=== PATIENT | female | born 1935 | race Caucasian/White ===

== ENCOUNTER 2016-07-01 14:28 | Outpatient (CLI) | payer MEDICARE ==
[2016-07-01 15:16] LABS: Anion Gap 15 mmol/L (10-20); BUN (Urea Nitrogen) 17 mg/dL (9.8-20.1); Calc. Creatinine Clearance 0 mL/min (70-130); Calcium 9.5 mg/dL (7.8-10.44); Carbon Dioxide 29 mmol/L (23-31); Chloride 97 mmol/L (98-107); Estimated GFR-MDRD 51; Glucose 76 mg/dL (83-110); Potassium 4.8 mmol/L (3.5-5.1); Sodium 136 mmol/L (136-145)
== END 2016-07-01 14:29 | disposition home or self-care (01) ==
LOC: MADLAB 14:28
PROVIDERS: ATTEND Internal Medicine Nephrology
DX: N18.4 Chronic kidney disease, stage 4 (severe) (principal)
CPT/HCPCS: 36415; 80048

== ENCOUNTER 2016-08-12 10:27 | Outpatient (CLI) | payer MEDICARE, OTHER ==
[2016-08-12 10:42] LABS: Hemoglobin 13.2 g/dL (12.0-16.0)
[2016-08-12 11:03] LABS: Anion Gap 16 mmol/L (10-20); BUN (Urea Nitrogen) 19 mg/dL (9.8-20.1); Calc. Creatinine Clearance 0 mL/min (70-130); Calcium 10.2 mg/dL (7.8-10.44); Carbon Dioxide 26 mmol/L (23-31); Chloride 97 mmol/L (98-107); Estimated GFR-MDRD 64; Glucose 89 mg/dL (83-110); Potassium 4.6 mmol/L (3.5-5.1); Sodium 134 mmol/L (136-145)
== END 2016-08-12 10:28 | disposition home or self-care (01) ==
LOC: MADLAB 10:27
PROVIDERS: ATTEND Internal Medicine Nephrology
DX: N18.2 Chronic kidney disease, stage 2 (mild) (principal); D63.1 Anemia in chronic kidney disease
CPT/HCPCS: 36415; 80048; 85014; 85018

== ENCOUNTER 2017-08-21 17:44 | Emergency (ER) | payer MEDICARE, MEDICAID ==
[~2017-08-21 17:44] MED LIST: Sodium Chloride 0.9% 100 ML BAG ONE
[2017-08-21] MEDS ORDERED: Aspirin 325 MG TAB ONE (18:16)
[2017-08-21 18:22] LABS: INR-International Normal Ratio 1.1; PTT 34.3 SEC (22.9-36.1); Prothrombin Time 14.2 SEC (12.0-14.7)
[2017-08-21 18:31] LABS: MDiff Complete? YES; Manual Diff?? YES; Mean Corpuscular HGB CONC 32.8 g/dL (32.0-36.0); Mean Corpuscular Volume 91.7 fL (81.0-99.0); Mean Platelet Volume 6.4 fL (7.4-10.4); Platelet Count 216 thou/uL (130-400); RBC Distribution Width 14.4 % (11.5-14.5); Red Blood Cell (RBC) Count 4.01 mill/uL (4.20-5.40); White Blood Cell (WBC) Count 16.6 thou/uL (4.8-10.8)
[2017-08-21 18:32] LABS: Band 1 % (5-11); Lymphocytes 8 % (21-51); Monocytes 10 % (0-10); Neutrophil 81 % (42-75); PLT Morphology Comment Appears Adequate
[2017-08-21 18:39] LABS: Bilirubin Negative (Negative); Blood, Urine Trace (Negative); Clarity Slightly Cloudy (Clear); Glucose, Urine (Dipstick) Negative (Negative); Leukocyte Moderate (Negative); Nitrite Negative (Negative); Protein, Urine (Dipstick) 100 mg/dL (Neg-Trace); Specific Gravity, Urine 1.025 (1.005-1.030); Urobilinogen 0.2 mg/dL (0.2-1.0)
[2017-08-21 18:43] LABS: CKMB 1.6 ng/mL (0-6.6); Troponin I 0.035 ng/mL (< 0.028)
[2017-08-21 18:51] LABS: ALT (SGPT) 18 U/L (8-55); AST (SGOT) 21 U/L (5-34); Albumin 3.8 g/dL (3.4-4.8); Alkaline Phosphatase 73 U/L (40-150); Anion Gap 18 mmol/L (10-20); BUN (Urea Nitrogen) 43 mg/dL (9.8-20.1); Bilirubin, Total 0.7 mg/dL (0.2-1.2); CK (CPK) 101 U/L (29-168); Calc. Creatinine Clearance 0 mL/min (70-130); Calcium 9.3 mg/dL (7.8-10.44); Carbon Dioxide 22 mmol/L (23-31); Chloride 98 mmol/L (98-107); Estimated GFR-MDRD 25; Globulin 2.9 g/dL (2.4-3.5); Glucose 119 mg/dL (83-110); Potassium 4.7 mmol/L (3.5-5.1); Protein, Total 6.7 g/dL (6.0-8.3); Sodium 133 mmol/L (136-145)
[2017-08-21 18:52] LABS: Bacteria/HPF 3+ HPF (None Seen); RBC/HPF 0-3 HPF (0-3); WBC/HPF 21-50 HPF (0-3)
--- NOTE | 2017-08-21 19:06 | RAD ---
PORTABLE CHEST ONE VIEW: Date: 08-21-17 Time: 5:59 p.m. History: Altered mental status. FINDINGS/IMPRESSION: The heart is enlarged. Left sided pacemaker device remains in place. Opacity is seen in the left lung base. There is mild prominence of the pulmonary vascularity. No pneumothoraces or large effusions ar e seen. POS: [facility]
[2017-08-21] MEDS ORDERED: cefTRIAXone\\ROCEPHIN 2 GM VIAL ONE (20:12)
[2017-08-21] MEDS ORDERED: methylPREDNISolone Sod Succ/PF 125 MG/2 ML VIAL ONE (20:12)
== END 2017-08-21 20:35 | disposition short-term general hospital (02) ==
LOC: MADERS 17:44
DX: J18.9 Pneumonia, unspecified organism (principal); N39.0 Urinary tract infection, site not specified; I50.9 Heart failure, unspecified; F03.90 Unspecified dementia, unspecified severity, without behavioral disturbance, psychotic disturbance, mood disturbance, and anxiety; I11.0 Hypertensive heart disease with heart failure; Z79.899 Other long term (current) drug therapy
CPT/HCPCS: 36415; 51701; 71045; 80053; 81001; 82550; 82553; 83605; 83880; 84484; 85025; 85610; 85730; 87040; 87077; 87086; 87186; 93005; 94760; 96374; 96375; A4353; J0696; J2930; J7050

== ENCOUNTER 2017-09-16 10:54 | Outpatient (CLI) | payer MEDICARE, OTHER ==
[2017-09-16 11:28] LABS: Anion Gap 17 mmol/L (10-20); BUN (Urea Nitrogen) 15 mg/dL (9.8-20.1); Calc. Creatinine Clearance 0 mL/min (70-130); Calcium 10.4 mg/dL (7.8-10.44); Carbon Dioxide 28 mmol/L (23-31); Chloride 100 mmol/L (98-107); Estimated GFR-MDRD 48; Glucose 103 mg/dL (83-110); Potassium 4.6 mmol/L (3.5-5.1); Sodium 140 mmol/L (136-145)
== END 2017-09-16 10:55 | disposition home or self-care (01) ==
LOC: MADLAB 10:54
PROVIDERS: ATTEND Internal Medicine Nephrology
DX: N18.3 Chronic kidney disease, stage 3 (moderate) (principal)
CPT/HCPCS: 36415; 80048

== ENCOUNTER 2017-12-20 18:43 | Emergency (ER) | payer MEDICARE, OTHER ==
[2017-12-20 19:30] LABS: #Basophils 0.1 thou/uL (0.0-0.2); #Eosinphils 0.3 thou/uL (0.0-0.7); #Lymphocytes 1.1 thou/uL (1.20-3.40); #Monocytes 0.6 thou/uL (0.11-0.59); #Neutrophils 4.1 thou/uL (1.40-6.50); %Basophils 1.8 % (0.0-1.0); %Eosinophils 4.6 % (0.0-10.0); %Lymphocytes 17.6 % (21.0-51.0); %Monocytes 9.4 % (0.0-10.0); %Neutrophils 66.6 % (42.0-75.0); Mean Corpuscular HGB CONC 31.6 g/dL (32.0-36.0); Mean Corpuscular Hemoglobin 28.4 pg (27.0-31.0); Mean Corpuscular Volume 89.9 fL (78.0-98.0); Mean Platelet Volume 5.1 fL (7.4-10.4); Platelet Count 290 thou/uL (130-400); Red Blood Cell (RBC) Count 4.57 mill/uL (4.20-5.40); White Blood Cell (WBC) Count 6.2 thou/uL (4.8-10.8)
[2017-12-20 19:46] LABS: Anion Gap 19 mmol/L (10-20); BUN (Urea Nitrogen) 15 mg/dL (9.8-20.1); Calc. Creatinine Clearance 0 mL/min (70-130); Calcium 9.8 mg/dL (7.8-10.44); Carbon Dioxide 23 mmol/L (23-31); Chloride 101 mmol/L (98-107); Estimated GFR-MDRD 43; Glucose 144 mg/dL (83-110); Potassium 3.9 mmol/L (3.5-5.1); Sodium 139 mmol/L (136-145)
[2017-12-20 19:56] LABS: Bilirubin Negative (Negative); Blood, Urine Negative (Negative); Clarity Clear (Clear); Glucose, Urine (Dipstick) Negative (Negative); Leukocyte Negative (Negative); Nitrite Negative (Negative); Protein, Urine (Dipstick) 30 mg/dL (Neg-Trace); Urobilinogen 0.2 mg/dL (0.2-1.0)
[2017-12-20 20:05] LABS: Bacteria/HPF None Seen HPF (None Seen); RBC/HPF 0-3 HPF (0-3); WBC/HPF 0-3 HPF (0-3)
--- NOTE | 2017-12-20 21:32 | CT ---
HEAD CT WITHOUT CONTRAST: 12/20/17 COMPARISON: 10/26/15 HISTORY: Urinary tract infection, electrolyte imbalance, altered mental status. TECHNIQUE: Serial axial CT imaging at 5 mm intervals from vertex through skull base without contrast. FINDINGS: The imaged paranasal sinuses and mastoid air cells are unremarkable aside from mild mucosal thickenin g of the right sphenoid sinus. There is atherosclerotic calcification of bilateral cavernous carotid arteries. There is moderate diffuse cerebral volume loss with associated prominence of the CSF contai gela spaces, stable. Periventricular hypodensity noted suggesting small vessel disease. No intracranial hemorrhage, midlin e shift or mass effect. IMPRESSION: No acute findings. POS: [facility]
[2017-12-20 21:56] LABS: CKMB 1.4 ng/mL (0-6.6); Troponin I 0.031 ng/mL (< 0.028)
== END 2017-12-20 23:20 | disposition short-term general hospital (02) ==
LOC: MADERS 18:43
DX: R41.82 Altered mental status, unspecified (principal); R78.89 Finding of other specified substances, not normally found in blood; I25.10 Atherosclerotic heart disease of native coronary artery without angina pectoris; I10 Essential (primary) hypertension; F03.90 Unspecified dementia, unspecified severity, without behavioral disturbance, psychotic disturbance, mood disturbance, and anxiety; Z87.891 Personal history of nicotine dependence
CPT/HCPCS: 70450; 80048; 81003; 81015; 82553; 84443; 84484; 85025; 93005; A4353

== ENCOUNTER 2018-04-21 15:19 | Outpatient (CLI) | payer MEDICARE, OTHER ==
[2018-04-21 15:32] LABS: Hemoglobin 12.5 g/dL (12.0-16.0)
[2018-04-21 15:46] LABS: Anion Gap 15 mmol/L (10-20); BUN (Urea Nitrogen) 15 mg/dL (9.8-20.1); Calc. Creatinine Clearance 0 mL/min (70-130); Calcium 10.5 mg/dL (7.8-10.44); Carbon Dioxide 27 mmol/L (23-31); Chloride 94 mmol/L (98-107); Estimated GFR-MDRD 50; Glucose 108 mg/dL (83-110); Potassium 4.6 mmol/L (3.5-5.1); Sodium 131 mmol/L (136-145)
== END 2018-04-21 15:20 | disposition home or self-care (01) ==
LOC: MADLAB 15:19
PROVIDERS: ATTEND Internal Medicine Nephrology
DX: N18.3 Chronic kidney disease, stage 3 (moderate) (principal); D63.1 Anemia in chronic kidney disease
CPT/HCPCS: 36415; 80048; 85014; 85018

== ENCOUNTER 2018-10-05 10:36 | Emergency (ER) | payer MEDICARE, BC, OTHER ==
--- NOTE | 2018-10-05 11:43 | RAD ---
RIGHT SHOULDER THREE VIEWS: History: Injury with pain to right shoulder. FINDINGS: There are degenerative changes of the glenohumeral joint. Spurring from the humeral head and glenoid. Humeral head rides high on the glenoid consistent with chronic rotator cuff tear. AC joint is normal ly aligned and does show degenerative spurring. IMPRESSION: Moderate degenerative change at the shoulder. Evidence of chronic rotator cuff tear. POS: [facility]
== END 2018-10-05 12:06 | disposition home or self-care (01) ==
LOC: MADERS 10:36
DX: M25.511 Pain in right shoulder (principal); I25.10 Atherosclerotic heart disease of native coronary artery without angina pectoris; I10 Essential (primary) hypertension; Z87.891 Personal history of nicotine dependence; F03.90 Unspecified dementia, unspecified severity, without behavioral disturbance, psychotic disturbance, mood disturbance, and anxiety; Z79.899 Other long term (current) drug therapy; Z79.82 Long term (current) use of aspirin

== ENCOUNTER 2018-10-25 18:00 | Emergency (ER) | payer MEDICARE, BC, OTHER ==
[2018-10-25 18:38] LABS: #Basophils 0.1 thou/uL (0.0-0.2); #Eosinphils 0.1 thou/uL (0.0-0.7); #Lymphocytes 1.1 thou/uL (1.20-3.40); #Monocytes 0.7 thou/uL (0.11-0.59); #Neutrophils 5.7 thou/uL (1.40-6.50); %Basophils 1.3 % (0.0-1.0); %Eosinophils 1.5 % (0.0-10.0); %Lymphocytes 14.2 % (21.0-51.0); %Monocytes 8.7 % (0.0-10.0); %Neutrophils 74.3 % (42.0-75.0); Hemoglobin 11.3 g/dL (12.0-16.0); Mean Corpuscular HGB CONC 32.1 g/dL (32.0-36.0); Mean Corpuscular Volume 90.3 fL (78.0-98.0); Mean Platelet Volume 4.6 fL (7.4-10.4); Platelet Count 341 thou/uL (130-400); RBC Distribution Width 14.9 % (11.5-14.5); Red Blood Cell (RBC) Count 3.88 mill/uL (4.20-5.40); White Blood Cell (WBC) Count 7.7 thou/uL (4.8-10.8)
[2018-10-25 18:56] LABS: ALT (SGPT) 18 U/L (8-55); AST (SGOT) 18 U/L (5-34); Albumin 3.9 g/dL (3.4-4.8); Alkaline Phosphatase 69 U/L (40-150); Anion Gap 13 mmol/L (10-20); BUN (Urea Nitrogen) 17 mg/dL (9.8-20.1); Bilirubin, Total 0.4 mg/dL (0.2-1.2); Calc. Creatinine Clearance 0 mL/min (70-130); Calcium 9.8 mg/dL (7.8-10.44); Carbon Dioxide 33 mmol/L (23-31); Chloride 85 mmol/L (98-107); Estimated GFR-MDRD 55; Globulin 3.2 g/dL (2.4-3.5); Glucose 96 mg/dL (83-110); Magnesium 1.9 mg/dL (1.6-2.6); Potassium 4.2 mmol/L (3.5-5.1); Protein, Total 7.1 g/dL (6.0-8.3); Sodium 127 mmol/L (136-145)
--- NOTE | 2018-10-25 19:06 | RAD ---
Portable frontal chest radiograph: 10/25/2018 COMPARISON: 08/24/2017 HISTORY: Shortness of breath, hypoxia, fluid overload FINDINGS: There is atherosclerotic calcification of the aortic arch. Stable dual lead transvenous pac ing device. Pulmonary vascular congestion noted. Right lung is clear. Mild increased density in the left lung base suggest volume loss. No alveolar edema or lobar consolidation. IMPRESSION: Pulmonary vascular prominence.
[2018-10-25 19:34] LABS: Base Excess-Venous 11.6 mmol/L (-2.0 to 3.0); Bicarbonate (HCO3v) 37.5 mmol/L (22.0-28.0); Calcium, Ionized 1.21 mmol/L (See Comments:); Chloride 83 mmol/L (98-107); Hemoglobin - Calc 13.4 g/dL (12.0-16.0); O2 Tension (PvO2) 194.7 mmHg (35.0-45.0); Sodium 128 mmol/L (138-145); T. Carbon Dioxide 39.1 mmol/L (22.0-28.0); pH (Venous) 7.457 (7.320-7.430); vO2 Saturation-calc 99.7 % (60.0-85.0)
[2018-10-25] MEDS ORDERED: traZODone HCl 50 MG TAB ONE (20:06)
[2018-10-25] MEDS ORDERED: ALPRAZolam 0.5 MG TAB ONE (20:06)
== END 2018-10-25 20:38 | disposition short-term general hospital (02) ==
LOC: MADERS 18:00
DX: I11.0 Hypertensive heart disease with heart failure (principal); I50.9 Heart failure, unspecified; I48.91 Unspecified atrial fibrillation; E87.8 Other disorders of electrolyte and fluid balance, not elsewhere classified; E87.3 Alkalosis; E87.1 Hypo-osmolality and hyponatremia; I25.10 Atherosclerotic heart disease of native coronary artery without angina pectoris; Z87.891 Personal history of nicotine dependence; Z79.899 Other long term (current) drug therapy; Z79.82 Long term (current) use of aspirin
CPT/HCPCS: 36415; 71045; 80053; 82330; 82803; 83735; 83880; 84443; 84484; 85025; 93005; 94760